=== PATIENT | female | born 1990 | race African-American/Black ===

== ENCOUNTER 2021-09-06 03:20 | Emergency (ER) | payer MEDICAID ==
[~2021-09-06] VITALS: Ht 157.5 cm; Wt 60.0 kg
[2021-09-06] MEDS ORDERED: ACETAMINOPHEN 325MG TABLET PO ONE (04:15)
[2021-09-06] MEDS ORDERED: TETANUS, DIPHTHERIA, PERTUSSIS VAC/PF 0.5ML (>10YR OLD) IM ONE (04:15)
[2021-09-06] MEDS ORDERED: IBUP-2029 MT (07:52)
[2021-09-06] MEDS ORDERED: KETOROLAC 30MG/ML VIAL IM ONE (08:00)
[2021-09-06 09:13] VITALS: BP 114/70
== END 2021-09-06 09:15 | disposition home or self-care (01) ==
LOC: ER 03:20
DX: S09.8XXA Other specified injuries of head, initial encounter (principal); M54.9 Dorsalgia, unspecified; M25.512 Pain in left shoulder; R07.81 Pleurodynia; Y08.89XA Assault by other specified means, initial encounter; Y93.9 Activity, unspecified; Y92.9 Unspecified place or not applicable
CPT/HCPCS: 70450; 71101; 72070; 72100; 73030; 90471; 90715; 96372; 99284; J1885; Z7610; A4565